=== PATIENT | male | born 1950 | race Asian ===

== ENCOUNTER 2019-01-13 09:36 | Emergency (ER) | payer MEDICARE, MEDICAID ==
[~2019-01-13] VITALS: Ht 170.2 cm; Wt 65.8 kg
--- NOTE | 2019-01-13 09:36 | NUR ---
PT BIBA BLS TO ER BED 04
[2019-01-13 09:41] VITALS: BP 141/74
--- NOTE | 2019-01-13 09:41 | NUR ---
PT TRIAGED AT BEDSIDE. DR. YUSUF AT BEDSIDE. SEIZURE PRECAUTIONS IN PLACE.
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
[2019-01-13] MEDS ORDERED: PHEN100C3 PO (09:57)
[2019-01-13] MEDS ORDERED: CRAN200C3 PO (09:57)
[2019-01-13] MEDS ORDERED: PHEN-1438 PO (09:57)
[2019-01-13] MEDS ORDERED: DOCU-299 PO (09:58)
[2019-01-13] MEDS ORDERED: MULT-153 PO (09:58)
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
[2019-01-13] MEDS ORDERED: LORazepam 2 MG/ML VIAL IM ONE (10:30)
[2019-01-13 10:33] LABS: BASOPHILS # (AUTO) 0.1 K/uL (0.00-0.22); BASOPHILS % (AUTO) 0.9 % (0.0-2.0); EOSINOPHILS # (AUTO) 0.2 K/uL (0-0.4); EOSINOPHILS % (AUTO) 2.7 % (0.0-4.0); HEMATOCRIT 39.9 % (36-52); HEMOGLOBIN 13.3 g/dL (12.0-18.0); LYMPHOCYTES # (AUTO) 1.8 K/uL (2.0-11.5); MEAN CORPUSCULAR HEMOGLOBIN 32 pg (27-31); MEAN CORPUSCULAR HGB CONC 33 g/dL (33-37); MEAN CORPUSCULAR VOLUME 94.9 fL (80-94); MONOCYTES # (AUTO) 0.6 K/uL (0.8-1.0); NEUTROPHILS # (AUTO) 4.5 K/uL (1.8-7.7); NEUTROPHILS % (AUTO) 62.4 % (42.2-75.2); PLATELET COUNT (AUTO) 361 K/uL (140-450); RED BLOOD CELL COUNT(AUTO) 4.21 MIL/uL (4.20-6.10); RED CELL DISTRIBUTION WIDTH 13.3 % (11.6-13.7); WHITE BLOOD COUNT (AUTO) 7.2 K/uL (4.8-10.8)
[2019-01-13] MEDS ORDERED: LORazepam 2 MG/ML VIAL ONE (10:43)
[2019-01-13 10:52] LABS: CARBON DIOXIDE 27.6 mmol/L (21-32); CREATININE 0.6 mg/dL (0.7-1.3); TOTAL BILIRUBIN 0.3 mg/dL (0.0-1.0)
[2019-01-13 10:53] LABS: ALBUMIN 2.5 g/dL (3.4-5.0); PHENYTOIN (DILANTIN) 8.2 ug/ml (10.0-20.0)
[2019-01-13 10:54] LABS: ANION GAP 11.8 (8-16); POTASSIUM 4.4 mmol/L (3.5-5.1)
--- NOTE | 2019-01-13 11:20 | NUR ---
EKG performed by EMT.
--- NOTE | 2019-01-13 12:15 | NUR ---
Patient is sleeping comfortably in bed. Vital Signs within normal limits. Respirations even and unlabored.
--- NOTE | 2019-01-13 14:20 | NUR ---
Gave report to DAVID Blair from [facility]. Transportation arranged for 1500 to transport pt back to facility.
[2019-01-13 15:18] VITALS: BP 122/88
--- NOTE | 2019-01-13 15:19 | NUR ---
Patient discharged with v/s stable. Written and verbal after care instructions given and explained to ambulance personnel. Pt awake, alert but unable to comprehend information. [facility]. All questions addressed prior to discharge. ID band removed. Paperwork given and it was advised for pt to follow up with PMD. Report was given to King Blair picking crew supervisor at [facility]. Opportunity to ask questions provided and answered.
== END 2019-01-13 15:19 | disposition home or self-care (01) ==
LOC: MED 09:36
DX: R56.9 Unspecified convulsions (principal); Z79.899 Other long term (current) drug therapy
CPT/HCPCS: 36415; 80053; 80184; 80185; 84484; 85025; 96372; 99283; J2060

== ENCOUNTER 2019-06-14 09:21 | Emergency (ER) | payer OTHER, MEDICAID ==
[~2019-06-14] VITALS: Ht 157.5 cm; Wt 68.0 kg
[~2019-06-14 09:21] MED LIST: CRAN200C3 PO; DOCU-299 PO; MULT-153 PO; PHEN-1438 PO; PHEN100C3 PO
[2019-06-14 09:24] VITALS: BP 0/0
[2019-06-14 16:28] VITALS: BP 0/0
== END 2019-06-14 16:28 | disposition expired ==
LOC: MED 09:21
DX: I46.9 Cardiac arrest, cause unspecified (principal); Z79.899 Other long term (current) drug therapy
CPT/HCPCS: 99285